=== PATIENT | male | born 1985 | race Caucasian/White ===

== ENCOUNTER 2024-01-10 18:59 | Emergency (ER) | payer SELFPAY ==
[2024-01-10] MEDS ORDERED: Acetaminophen 500 MG TAB ONE (19:54)
[2024-01-10 20:23] LABS: #Basophils 0.07 10x3/uL (0.0-0.2); %Basophils 0.8 % (0.0-1.0); %Eosinophils 3.1 % (0.0-10.0); %Lymphocytes 25.6 % (21.0-51.0); %Neutrophils 63.2 % (42.0-75.0); Hematocrit 38.8 % (42.0-52.0); Hemoglobin 14.3 g/dL (14.0-18.0); Mean Corpuscular HGB CONC 36.9 g/dL (32.0-36.0); Mean Corpuscular Hemoglobin 32.1 pg (27.0-31.0); Mean Corpuscular Volume 87.2 fL (78.0-98.0); Platelet Count 273 10x3/uL (130-400); RBC Distribution Width 13.4 % (11.5-14.5); Red Blood Cell (RBC) Count 4.45 mill/uL (4.70-6.10)
[2024-01-10] MEDS ORDERED: cefTRIAXone (ROCEPHIN) 2 GM VIAL ONE (20:35)
[2024-01-10] MEDS ORDERED: Sodium Chloride 0.9% 100 ML ONE (20:35)
[2024-01-10] MEDS ORDERED: Azithromycin 500 MG VIAL ONE (20:35)
[2024-01-10 20:37] LABS: ALT (SGPT) 40 U/L (8-55); AST (SGOT) 31 U/L (5-34); Albumin 3.4 g/dL (3.5-5.0); Alkaline Phosphatase 66 U/L (40-110); Anion Gap 14 mmol/L (10-20); BUN (Urea Nitrogen) 4 mg/dL (8.9-20.6); Bilirubin, Total 0.4 mg/dL (0.2-1.2); Calc. Creatinine Clearance 0 mL/min (70-130); Calcium 9.1 mg/dL (7.8-10.44); Carbon Dioxide 24 mmol/L (22-29); Chloride 102 mmol/L (98-107); Estimated GFR 117; Globulin 4.1 g/dL (2.4-3.5); Glucose 120 mg/dL (70-105); Potassium 3.4 mmol/L (3.5-5.1); Protein, Total 7.5 g/dL (6.0-8.3); Sodium 137 mmol/L (136-145)
== END 2024-01-10 21:49 | disposition home or self-care (01) ==
LOC: ERS 18:59
DX: J18.9 Pneumonia, unspecified organism (principal)
CPT/HCPCS: 36415; 71045; 80053; 83605; 83880; 85025; 87040; 87428; 93005; 96374; 96375; J0456; J0696